=== PATIENT | male | born 1950 | race Caucasian/White ===

== ENCOUNTER → 2016-12-06 | Day surgery (SDC) | payer MEDICARE, OTHER ==
[~2016-12-06] VITALS: Ht 180.3 cm; Wt 94.8 kg
[~2016-12-06] MED LIST: 0.9% Sodium Chloride 1,000 ML IV SCH; ALLO300T2 PO; ASPI-973 PO; ATEN100T PO; ATOR80TA77 PO; BENA20TA PO; DILT-5 PO; METF1000 PO; OMEP20CA11 PO; PARO40TA3 PO; SILD20TA14 PO; Sodium Chloride LOK Flush 10 mL Syringe IV PRN; TAMS0.4C29 PO; fentaNYL-PF 50 mCg/mL 2 mL Inj IVPUSH PRN
[2016-12-06 08:16] VITALS: BP 146/75; PULSE 68; O2SAT 98
[2016-12-06 09:25] VITALS: BP 155/72; PULSE 61; RESP 14; O2SAT 99
[2016-12-06 09:37] VITALS: BP 163/80; PULSE 60; RESP 12; O2SAT 99
--- NOTE | 2016-12-06 09:55 | ENDO ---
[address] [address] ENDOSCOPY PROCEDURE PATIENT: LAITH CHRISTIAN : 1950 MR#: [id number] ADMIT: 12/06/2016 JOB ID: [id number] DATE OF PROCEDURE: 12/06/2016 PRIMARY PROVIDER: Cricket Adam MD PROCEDURE: Colonoscopy with hot snare polypectomy and cold snare polypectomy. INDICATIONS: A 66-year-old male who reports for colon cancer screening. EQUIPMENT: Waspit-H180AL. SEDATION: 1. Versed 3 mg. 2. Fentanyl 75 mcg. COMPLICATIONS: None identified. BOWEL PREPARATION: Fair, adequate exam. PROCEDURE INFO: After the risks and benefits were explained, written and verbal informed consent was obtained. The patient was brought into the endoscopy suite and placed in left lateral decubitus position. Sedation was achieved using the above-stated medications with the addition of oxygen via nasal cannula. A digital rectal examination revealed only minimal internal hemorrhoids. No other significant pathology was appreciated. The scope was introduced into the rectum and advanced to the cecum as identified by the appendiceal orifice and ileocecal valve. The scope was slowly withdrawn to carefully examine the mucosa for any defects or lesions. Multiple direct views were made through the dentate line for exclusion of pathology. The colon was decompressed. The scope removed from the patient who tolerated the procedure well. FINDINGS: From the cecum all the way through the transverse colon there were six polyps seen and removed. The largest was perhaps 8-9 mm in size. The smallest was approximately 5 mm. For the small polyp we utilized cold snare. No other significant pathology was appreciated throughout. ENDOSCOPIC DIAGNOSES: Multiple colon polyps. RECOMMENDATIONS: 1. Await histopathology. 2. Repeat colonoscopy in three years.
--- NOTE | 2016-12-07 15:42 | PATH ---
SURGICAL PATHOLOGY Attending Physician:Devendra Le CASE STATUS: Signed Out PATIENT NAME: LAITH CHRISTIAN PID: [id number] : 1950 DATE COLLECTED:12/06/2016 16:36 SPECIMEN: Colon, Polyp CLINICAL HISTORY: 1). COLON POLYPS X6 FINAL DIAGNOSIS: Colon, Polyp, Biopsies: Multiple (approximately 10) portions of tubular adenoma; negative for high-grade dysplasia. Superficial portion of colorectal mucosa x1 with no diagnostic abnormality. ICD10: K63.5 GROSS DESCRIPTION: The specimen is received in one formalin filled container labeled with the patient's name, sublabeled "colon polyps x6"and consists of multiple portions of tissue which aggregate to 0.7 x 0.7 x 0.4 CM. The specimen is entirely submitted in one cassette. 12/06/2016FL ICD-9 CODES: CPT CODES: 1: 49419 Electronically Signed Out Cris Sanchez MD [facility] Pathology [facility] [address], [place] [address] Technical component performed at [facility], [facility] [address], [address]
== END | disposition home or self-care (01) ==
LOC: END 00:03
PROVIDERS: ATTEND Internal Medicine Gastroenterology
DX: Z12.11 Encounter for screening for malignant neoplasm of colon (principal); D12.6 Benign neoplasm of colon, unspecified; E11.22 Type 2 diabetes mellitus with diabetic chronic kidney disease; N18.2 Chronic kidney disease, stage 2 (mild); I25.10 Atherosclerotic heart disease of native coronary artery without angina pectoris; I10 Essential (primary) hypertension; E78.2 Mixed hyperlipidemia; K21.9 Gastro-esophageal reflux disease without esophagitis; M10.9 Gout, unspecified; N40.1 Benign prostatic hyperplasia with lower urinary tract symptoms; D69.6 Thrombocytopenia, unspecified; F32.9 Major depressive disorder, single episode, unspecified; Z95.1 Presence of aortocoronary bypass graft; Z79.84 Long term (current) use of oral hypoglycemic drugs; Z79.82 Long term (current) use of aspirin
CPT/HCPCS: 45385; 99153; G0500; J2250; J3010; J7030